=== PATIENT | female | born 1965 | race Caucasian/White ===

== ENCOUNTER 2017-09-29 10:46 | Emergency (ER) | payer OTHER ==
[2017-09-29 11:00] VITALS: BP 122/82; RESP 18
--- NOTE | 2017-09-29 12:22 | C.PDOC ---
History Of Present Illness 52-year-old female, presents to the emergency department with complaints of knee pain s/p trip and fall just prior to arrival. She is also complaining of pain in right hip, that worsens with ambulation. Denies any change in sensation , weakness, pain/injury to head or neck. Time Seen by Provider: 09/29/17 11:10 Chief Complaint (Nursing): Lower Extremity Problem/Injury History Per: Patient History/Exam Limitations: no limitations Onset/Duration Of Symptoms: Other (prior to arrival) Past Medical History Reviewed: Historical Data, Nursing Documentation, Vital Signs Vital Signs: Last Vital Signs Temp 98.6 F 09/29/17 12:50 Pulse 88 09/29/17 12:50 Resp 18 09/29/17 12:50 BP 122/82 09/29/17 10:58 Pulse Ox 99 09/29/17 12:50 - Medical History PMH: Asthma, Diverticulitis Family History: States: No Known Family Hx - Social History Hx Alcohol Use: No Hx Substance Use: No - Immunization History Hx Tetanus Toxoid Vaccination: No Hx Influenza Vaccination: No Hx Pneumococcal Vaccination: No Review Of Systems Gastrointestinal: Negative for: Vomiting Musculoskeletal: Positive for: Other (right hip and right knee pain) Neurological: Negative for: Weakness, Numbness Physical Exam - Physical Exam Appears: Well, Non-toxic, No Acute Distress Skin: Warm, Dry, Other ((+) superficial abrasion to the right knee) Head: Atraumatic, Normacephalic Eye(s): bilateral: Normal Inspection, EOMI Nose: Normal Oral Mucosa: Moist Neck: Normal ROM, Supple Chest: Symmetrical Respiratory: No Accessory Muscle Use Extremity: No Normal ROM ((+)decreased secondary to Pain), Tenderness (Diffuse tenderness to lateral hip and anterior knee.), Capillary Refill (<2 seconds), No Deformity, No Swelling Pulses: Left Dorsalis Pedis: Normal, Right Dorsalis Pedis: Normal Neurological/Psych: Oriented x3, Normal Speech, Normal Motor, Normal Sensation ED Course And Treatment O2 Sat by Pulse Oximetry: 100 (RA) Pulse Ox Interpretation: Normal Progress Note: XR R Knee and R Hip ordered and reviewed. Paient treated with PO Tylenol. On re-evaluation, Patient is resting comfortably, and is in no acute distress. Pain has improved. Albino wrap applied to knee. Patient was instructed RICE and to follow up with physician/clinic in 1-2 days for further evaluation. Disposition - Disposition Referrals: Mihir Rivas MD [Staff Provider] - Disposition: HOME/ ROUTINE Disposition Time: 12:37 Condition: STABLE Additional Instructions: Please apply ice to area, take Motrin or Tylenol as needed for pain every 6 hours, with food to not upset stomach. Follow up with orthopedic if pain persists over one week. Instructions: Contusion (DC) Forms: [employer] (Uzbek), Work Excuse - Clinical Impression Clinical Impression: Knee contusion, Hip strain - Scribe Statement The provider has reviewed the documentation as recorded by the Scribe (Arturo Rivas) All medical record entries made by the Scribe were at my direction and personally dictated by me. I have reviewed the chart and agree that the record accurately reflects my personal performance of the history, physical exam, medical decision making, and the department course for this patient. I have also personally directed, reviewed, and agree with the discharge instructions and disposition.
--- NOTE | 2017-09-29 13:01 | RAD ---
PROCEDURE: Right Knee Radiographs. HISTORY: trauma COMPARISON: None. FINDINGS: BONES: Bone alignment and mineralization are normal. There is no acute displaced fracture or bone destruction. JOINTS: There is mild tricompartmental degenerative osteoarthrosis with reduced joint spaces, marginal spurring and tibial spiking, worse in the medial compartment. JOINT EFFUSION: There is a small suprapatellar joint effusion. OTHER FINDINGS: None. IMPRESSION: No acute fracture or dislocation.
[2017-09-29 13:18] VITALS: PULSE 88; TEMP 98.6
--- NOTE | 2017-09-29 13:35 | RAD ---
PROCEDURE: Pelvis and right hip radiographs. HISTORY: Trauma COMPARISON: None. FINDINGS: BONES: The pelvic ring is intact. Bone mineralization is normal. There is no acute displaced fracture or bone destruction JOINTS: The hip joint spaces are preserved. There is mild degenerative osteoarthrosis in the sacroiliac joints. SOFT TISSUES: Normal. OTHER FINDINGS: None. IMPRESSION: No acute displaced fracture or dislocation.Please note occult fractures cannot be excluded on plain radiographs. If there is a persistent clinical concern, an MRI of the hip may be performed for further evaluation.
[2017-09-29 15:45] VITALS: O2SAT 100
== END 2017-09-29 12:50 | disposition home or self-care (01) ==
LOC: C.ER 10:46
DX: S80.01XA Contusion of right knee, initial encounter (principal); S76.011A Strain of muscle, fascia and tendon of right hip, initial encounter; W01.0XXA Fall on same level from slipping, tripping and stumbling without subsequent striking against object, initial encounter